=== PATIENT | male | born 1935 | race Caucasian/White ===

== ENCOUNTER 2017-10-10 10:42 | Inpatient (IN) | payer OTHER ==
[2017-10-10 12:54] LABS: BASOPHILS % (AUTO) 0.8 % (0.2-1.0); EOSINOPHILS # (AUTO) 0.1 x10^3/uL (0.0-0.2); EOSINOPHILS % (AUTO) 1.6 % (0.9-2.9); HEMATOCRIT 34.5 % (42.0-54.0); HEMOGLOBIN 12.1 g/dL (13.5-18.0); LYMPHOCYTES # (AUTO) 0.9 X10^3/uL (1.3-2.9); LYMPHOCYTES % (AUTO) 20.7 % (21.0-51.0); MEAN CORPUSCULAR HEMOGLOBIN 30.5 pg (27.0-34.0); MEAN CORPUSCULAR HGB CONC 35.1 g/dL (33.0-35.0); MEAN CORPUSCULAR VOLUME 86.9 fL (80.0-100.0); MEAN PLATELET VOLUME 7.1 fL (7.4-11.0); MONOCYTES # (AUTO) 0.2 x10^3/uL (0.3-0.8); MONOCYTES % (AUTO) 5.7 % (0.0-13.0); NEUTROPHILS % (AUTO) 71.2 % (42.0-75.0); PLATELET COUNT 266 X10^3/uL (150.0-450.0); RED BLOOD COUNT 3.97 X10^6/uL (4.7-6.0); WHITE BLOOD COUNT 4.3 X10^3/uL (3.6-10.0)
[2017-10-10 13:04] LABS: ALANINE AMINOTRANSFERASE 17 Units/L (12-78); ALKALINE PHOSPHATASE 70 Units/L (46-116); ASPARTATE AMINO TRANSFERASE 34 Units/L (15-37); BLOOD UREA NITROGEN 23 mg/dL (7-18); CALCIUM 8.8 mg/dL (8.5-10.1); CARBON DIOXIDE 30.1 mmol/L (21-32); CHLORIDE 99 mmol/L (98-107); COR CA(FOR HYPOALB) 9.6 mg/dL (8.5-10.1); COR NA(FOR HYPERGLY) 139 mmol/L (136-145); CREATININE 0.89 mg/dL (0.70-1.30); SODIUM 137 mmol/L (136-145); TOTAL PROTEIN 7.6 g/dL (6.4-8.2); eGFR BLACK RACES > 60 (>60); eGFR NON BLACK RACES > 60 (>60)
[2017-10-10 13:12] LABS: B-TYPE NATRIURETIC PEPTIDE 48.7 pg/mL (0-79)
--- NOTE | 2017-10-10 14:25 | RAD ---
HISTORY: Preoperative evaluation for hip fracture repair Study: Single view chest Comparison:None Findings: Single portable view is submitted. No infiltrate, effusion or pneumothorax identified. The cardiac an d mediastinal contours are within normal limits. The soft tissues are unremarkable. IMPRESSION: 1. No acute cardiopulmonary abnormality. Reported By:
[2017-10-10] MEDS: NS 1000 ML 1,000 ML IV SCH (14:41)
[2017-10-10] MEDS: CHECK PATCH XX SCH ×2 (15:48→21:57)
[2017-10-10] MEDS ORDERED: CHECK PATCH XX SCH (16:00)
[2017-10-10] MEDS ORDERED: BUTT CREAM (COMPOUND) ONE (17:15)
[2017-10-11] MEDS: NS 1000 ML 1,000 ML IV SCH (01:38)
[2017-10-11 02:39] LABS: BILIRUBIN,URINE NEGATIVE (NEGATIVE); BLOOD/HEMOGLOBIN,URINE 5+ (NEGATIVE); GLUCOSE, URINE NEGATIVE (NEGATIVE); KETONES,URINE 1+ (NEGATIVE); LEUKOCYTE ESTERASE ,URINE 1+ (NEGATIVE); NITRITES,URINE NEGATIVE (NEGATIVE); PROTEIN,URINE 2+ (NEGATIVE); UROBILINOGEN,URINE 3+ (NORMAL)
[2017-10-11 02:49] LABS: APPEARANCE,URINE CLOUDY (CLEAR); COLOR,URINE AMBER (YELLOW); RBC,URINE TNTC /HPF (NONE SEEN)
[2017-10-11 02:50] LABS: BACTERIA,URINE NEGATIVE /HPF (NEGATIVE); SQUAMOUS EPITHELIAL CELL,UR FEW /HPF (NEGATIVE)
[2017-10-11 05:29] LABS: ALBUMIN 2.8 g/dL (3.4-5.0); ALKALINE PHOSPHATASE 65 Units/L (46-116); ASPARTATE AMINO TRANSFERASE 23 Units/L (15-37); BLOOD UREA NITROGEN 17 mg/dL (7-18); CALCIUM 8.4 mg/dL (8.5-10.1); CARBON DIOXIDE 30.9 mmol/L (21-32); CHLORIDE 101 mmol/L (98-107); COR CA(FOR HYPOALB) 9.4 mg/dL (8.5-10.1); COR NA(FOR HYPERGLY) 138 mmol/L (136-145); CREATININE 0.77 mg/dL (0.70-1.30); SODIUM 137 mmol/L (136-145); TOTAL PROTEIN 7.1 g/dL (6.4-8.2); eGFR BLACK RACES > 60 (>60); eGFR NON BLACK RACES > 60 (>60)
[2017-10-11 05:31] LABS: BASOPHILS % (AUTO) 0.9 % (0.2-1.0); EOSINOPHILS # (AUTO) 0.2 x10^3/uL (0.0-0.2); EOSINOPHILS % (AUTO) 3.6 % (0.9-2.9); HEMATOCRIT 33.3 % (42.0-54.0); HEMOGLOBIN 11.4 g/dL (13.5-18.0); LYMPHOCYTES # (AUTO) 1.4 X10^3/uL (1.3-2.9); MEAN CORPUSCULAR HEMOGLOBIN 30.2 pg (27.0-34.0); MEAN CORPUSCULAR HGB CONC 34.4 g/dL (33.0-35.0); MEAN PLATELET VOLUME 7.7 fL (7.4-11.0); MONOCYTES # (AUTO) 0.4 x10^3/uL (0.3-0.8); MONOCYTES % (AUTO) 8.4 % (0.0-13.0); NEUTROPHILS # (AUTO) 2.9 x10^3/uL (2.2-4.8); NEUTROPHILS % (AUTO) 59.1 % (42.0-75.0); PLATELET COUNT 258 X10^3/uL (150.0-450.0); RED BLOOD COUNT 3.78 X10^6/uL (4.7-6.0); RED CELL DISTRIBUTION WIDTH 12.8 % (11.6-16.5); WHITE BLOOD COUNT 4.9 X10^3/uL (3.6-10.0)
[2017-10-11 05:42] LABS: ALANINE AMINOTRANSFERASE 25 Units/L (12-78)
[2017-10-11] MEDS: CHECK PATCH XX SCH ×2 (10:20→21:00)
[2017-10-11 10:33] VITALS: BMI 17.3
[2017-10-11] MEDS ORDERED: CHRONULAC PO PRN (10:55)
--- NOTE | 2017-10-11 10:55 | DR.H&P ---
H&P - History & Physical for Day of: H&P Date: 10/11/17 - Chief Complaint Chief Complaint: LEFT HIP FRACTURE, PAIN - Allergies Allergies/Adverse Reactions: Allergies Allergy/AdvReac Type Severity Reaction Status Date / Time No Known Drug Allergies Allergy Verified 10/10/17 12:25 - History of Present Illness History of Present Illness: IS A 81 YEAR OLD PATIENT OF . HE IS A PERMANENT RESIDENT OF [facility] IN [place], [place]. PATIENT FELL ON October AND NOW HAS A FRACTURED HIP. PATIENT IS NOTED WITH MODERATE PAIN TO THE LEFT HIP AREA. SPOUSE REPORTS THAT PATIENT WAS AMBULATORY WITHOUT DIFFICULTY PRIOR TO FALL. PATIENT WAS SEEN IN , ORTHOPEDIC SURGEONS OFFICE TODAY. THEY PLANNED FOR SURGICAL REPAIR TOMORROW. PATIENT WAS A DIRECT ADMISSION TODAY FOR PAIN MANAGEMENT AND SURGICAL CLEARANCE. ON ADMISSION, LABS WERE OBTAINED. ABNORMAL LAB VALUES INCLUDE THE FOLLOWING: RBC 3.97, HGB 12.1, HCT 34.5, BUN 23, GLUCOSE 183, ALBUMIN 3.0, GLOBULIN 4.6. URINALYSIS REVEALED WBC 3-5, RBC TNTC, LEUKOCYTES 1+ , BACTERIA NEGATIVE. A CHEST XRAY WAS OBTAINED AND IS CLEAR. ECHO REPORTED AN EJECTION FRACTION OF 84%. EKG REVEALS NORMAL SINUS RHYTHM WITH A NORMAL RATE. PATIENT IS MEDICALLY STABLE AND CLEAR FOR SURGICAL INTERVENTION. PLANS FOR SURGERY TOMORROW MORNING. WE WILL CONTINUE WITH PAIN MANAGEMENT AND FOLLOW UP WITH AM LABS. - Past Surgical History Surgical History: TURP - Social History Does patient currently use any type of tobacco product: No Have you used tobacco products in the last 12 months: No Type of Tobacco Use: None Does any household member use tobacco: No Alcohol Use: None Drug Use: None - Medications Home Medications: Acetaminophen [TYLENOL 325 MG TAB *] 2 tab PO Q6H PRN 10/10/17 [History Confirmed 10/10/17] Aspirin EC [ASPIRIN EC 81 MG *] 1 tab PO DAILY 10/10/17 [History Confirmed 10/10] Carbidopa/Levodopa [Rytary ER 61.25 mg-245 mg Cap] 1 cap PO QID 10/10/17 [ History Confirmed 10/10/17] Cholecalciferol [Vitamin D3] 1 tab PO BID 10/10/17 [History Confirmed 10/10/17] Divalproex Sodium [Depakote DR] 250 mg PO DAILY 10/10/17 [History Confirmed 03/20] Docusate Sodium [Colace] 1 cap PO DAILY 10/10/17 [History Confirmed 10/10/17] Fentanyl 25 Mcg/Hr [DURAGESIC PATCH 25 mcg/hr *] 1 patch TOP Q72H 10/10/17 [ History Confirmed 10/10/17] Gabapentin [Neurontin] 1 tab PO Q8H 10/10/17 [History Confirmed 10/10/17] Ibuprofen [MOTRIN TAB 600 MG *] 1 tab PO TID PRN 10/10/17 [History Confirmed 03/20] Lactulose 30 ml PO BID PRN 10/10/17 [History Confirmed 10/10/17] Lubiprostone [Amitiza] 1 cap PO BID 10/10/17 [History Confirmed 10/10/17] Mirtazapine 1 tab PO HS 10/10/17 [History Confirmed 10/10/17] Multivitamin [Multi-Vitamin Daily] 1 tab PO DAILY 10/10/17 [History Confirmed ] Omeprazole [PRILOSEC 20 MG *] 1 cap PO DAILY 10/10/17 [History Confirmed ] Oxycodone HCl/Acetaminophen [Oxycodone-Acetaminophen 10-325] 1 tab PO Q4H PRN [History Confirmed 10/10/17] Pimavanserin Tartrate [Nuplazid] 2 tab PO DAILY 10/10/17 [History Confirmed 03/20] Rivastigmine [EXELON PATCH 4.6 MG/24 HR *] 1 patch TOP Q24H 10/10/17 [History Confirmed 10/10/17] Trazodone HCl [TRAZODONE 50 MG (DESYREL) *] 1 tab PO DAILY 10/10/17 [History Confirmed 10/10/17] - Review of Systems Constitutional: Weakness Eyes: No Symptoms Reported ENT: No Symptoms Reported Respiratory: No Symptoms Reported Cardiovascular: No Symptoms Reported Gastrointestinal: No Symptoms Reported Genitourinary: No Symptoms Reported Musculoskeletal: See HPI, Other (LEFT HIP PAIN ) Skin: No Symptoms Reported Neurological: Weakness - Physical Exam Vital Signs: Temperature 97.6 F Pulse Rate [Left Brachial] 77 Pulse Rate [Right Brachial] 92 Respiratory Rate 18 Blood Pressure [Left Arm] 141/70 Blood Pressure [Right Arm] 124/76 O2 Sat by Pulse Oximetry 94 Oriented: Normal Eyes: Normal Ear: Normal Nose: Normal Throat: Normal Respiratory: Clear Throughout Cardiovascular: Normal : Normal Auscultation: Bowel Sounds: Normal Palpation: Normal Tenderness: Normal Skin: Normal Musculoskeletal: Left, Hip, Tender, Instability Psychiatric: Normal Mood Description: Calm Affect: Normal Speech Pattern: Clear - Assessment/Plan (1) Hip fracture Qualifiers: Encounter type: initial encounter Fracture type: closed Laterality: left Qualified Code(s): S72.002A - Fracture of unspecified part of neck of left femur, initial encounter for closed fracture Status: Acute Plan: SURGICAL REPAIR, PAIN MANAGEMENT
[2017-10-11] MEDS ORDERED: LR 1000 ML IV 1,000 ML IV ONE (12:04)
[2017-10-11] MEDS ORDERED: ANCEF 1 GM IV PREMIX* 1 GM/50 ML BAG IV ONE (12:09)
[2017-10-11] MEDS ORDERED: NS IRRIGATION 1000 ML 1,000 ML with BACITRACIN VIAL 50,000 UNIT IR ONE ×2 (12:49)
[2017-10-11] MEDS ORDERED: KETALAR ONE (12:50)
[2017-10-11] MEDS: FENTANYL INJ 100 mcg ONE (13:00)
[2017-10-11] MEDS: LEVODOPA PO SCH ×3 (13:56→23:54)
[2017-10-11] MEDS: CARBIDOPA PO SCH ×3 (13:56→23:54)
[2017-10-11] MEDS: BACTROBAN OINT ONE ×2 (14:28→14:38)
[2017-10-11] MEDS ORDERED: DILAUDID INJ IVP PRN (14:49)
[2017-10-11] MEDS ORDERED: REGLAN INJ 10 MG VIAL IVP PRN (14:49)
[2017-10-11] MEDS ORDERED: BENADRYL INJ 50 MG VIAL IVP PRN (14:49)
[2017-10-11] MEDS ORDERED: PHENERGAN INJ 25 MG IVP PRN (14:49)
[2017-10-11] MEDS ORDERED: ZOFRAN INJ 4 MG VIAL IVP PRN (14:49)
[2017-10-11] MEDS ORDERED: VERSED ONE (15:39)
[2017-10-11] MEDS ORDERED: DIPRIVAN VIAL ONE (15:39)
[2017-10-11] MEDS: EXELON PATCH 4.6 MG/24 HR TD SCH (15:48)
[2017-10-11] MEDS: PERCOCET TAB 5/325 MG PO PRN ×2 (15:49→20:00)
[2017-10-11] MEDS: ANCEF 1 GM IV PREMIX* 1 GM/50 ML BAG IV SCH ×2 (15:49→21:00)
[2017-10-11] MEDS ORDERED: PATIENT'S HOME MEDICATION (Mirtazapine [Mirtazapine] 1 TAB) PO SCH (21:00)
[2017-10-11] MEDS: PIMAVANSERIN TARTRATE PO SCH (21:00)
[2017-10-11] MEDS ORDERED: DIVALPROEX SODIUM 250 MG PO SCH (21:00)
[2017-10-11] MEDS: LUBIPROSTONE PO SCH (21:00)
--- NOTE | 2017-10-11 21:10 | PCM.PROG ---
Progress Note - Progress Note for Day of Date: 10/11/17 - Subjective Subjective: WAS ADMITTED FOR A LEFT HIP FRACTURE. PLANS TO TAKE PATIENT TO THE OR FOR SURGICAL REPAIR TODAY. HE IS ALERT AND ORIENTED, LYING IN BED ON MORNING ROUNDS. HE CONTINUES WITH PAIN TO THE LEFT HIP. HIS VITALS THIS MORNING ARE 99.3-71-18-99%-147/70. HE IS HEMODYNAMICALLY STABLE TODAY. TODAY, WE WILL CONTINUE TO MANAGE PAIN AND MONITOR PATIENT WHEN HE RETURNS FROM SURGERY. WE WILL FOLLOW UP WITH AM LABS AND CONTINUE TO MONITOR PATIENT. - Past Medical Family Social History Past Med/Fam/Surg Hx: No changes since H&P Allergies: Allergies No Known Drug Allergies Allergy (Verified 10/10/17 12:25) - Review of Systems ROS: No change since H&P - Vital Signs and I&O's Vital Signs: Temperature 97.6 F Pulse Rate [Left Brachial] 78 Pulse Rate [Right Brachial] 92 Pulse Rate 70 Respiratory Rate 18 Blood Pressure [Left Arm] 182/80 Blood Pressure [Right Arm] 124/76 Blood Pressure 178/84 O2 Sat by Pulse Oximetry 98 Intake and Output: Intake & Output 10/09/17 10/10/17 10/11/17 10/12/17 11:59 11:59 11:59 11:59 Intake Total 660 760 Output Total 100 Balance 560 760 - Physical Exam Oriented: Normal Eyes: Normal Ear: Normal Nose: Normal Throat: Normal Respiratory: Normal Cardiovascular: Normal : Normal Auscultation: Bowel Sounds: Normal Palpation: Normal Tenderness: Normal Skin: Normal Musculoskeletal: Left, Hip, Tender, Instability Psychiatric: Normal Mood Description: Calm Affect: Normal Speech Pattern: Clear - Laboratory and Diagnostics Result Diagrams: 10/11/17 04:23 10/11/17 04:23 Labs: Laboratory WBC 4.9 X10^3/uL (3.6-10.0) 10/11/17 04:23 RBC 3.78 X10^6/uL (4.7-6.0) L 10/11/17 04:23 Hgb 11.4 g/dL (13.5-18.0) L 10/11/17 04:23 Hct 33.3 % (42.0-54.0) L 10/11/17 04:23 MCV 88.0 fL (80.0-100.0) 10/11/17 04:23 MCH 30.2 pg (27.0-34.0) 10/11/17 04:23 MCHC 34.4 g/dL (33.0-35.0) 10/11/17 04:23 RDW 12.8 % (11.6-16.5) 10/11/17 04:23 Plt Count 258 X10^3/uL (150.0-450.0) 10/11/17 04:23 MPV 7.7 fL (7.4-11.0) 10/11/17 04:23 Neut % (Auto) 59.1 % (42.0-75.0) 10/11/17 04:23 Lymph % (Auto) 28.0 % (21.0-51.0) 10/11/17 04:23 [place] % (Auto) 8.4 % (0.0-13.0) 10/11/17 04:23 Eos % (Auto) 3.6 % (0.9-2.9) H 10/11/17 04:23 Baso % (Auto) 0.9 % (0.2-1.0) 10/11/17 04:23 Neut # (Auto) 2.9 x10^3/uL (2.2-4.8) 10/11/17 04:23 Lymph # (Auto) 1.4 X10^3/uL (1.3-2.9) 10/11/17 04:23 [place] # (Auto) 0.4 x10^3/uL (0.3-0.8) 10/11/17 04:23 Eos # (Auto) 0.2 x10^3/uL (0.0-0.2) 10/11/17 04:23 Baso # (Auto) 0.0 X10^3/uL (0.0-0.1) 10/11/17 04:23 Absolute Nucleated RBC 0.0 /100WBC 10/11/17 04:23 Sodium 137 mmol/L (136-145) 10/11/17 04:23 Corrected Sodium 138 mmol/L (136-145) 10/11/17 04:23 Potassium 4.0 mmol/L (3.5-5.1) 10/11/17 04:23 Chloride 101 mmol/L (98-107) 10/11/17 04:23 Carbon Dioxide 30.9 mmol/L (21-32) 10/11/17 04:23 BUN 17 mg/dL (7-18) 10/11/17 04:23 Creatinine 0.77 mg/dL (0.70-1.30) 10/11/17 04:23 Est GFR (MDRD) Af Amer > 60 (>60) 10/11/17 04:23 Est GFR (MDRD) Non-Af > 60 (>60) 10/11/17 04:23 Glucose 122 mg/dL (65-99) H 10/11/17 04:23 Calcium 8.4 mg/dL (8.5-10.1) L 10/11/17 04:23 Corrected Calcium 9.4 mg/dL (8.5-10.1) 10/11/17 04:23 Total Bilirubin 0.50 mg/dL (0.2-1.0) 10/11/17 04:23 AST 23 Units/L (15-37) 10/11/17 04:23 ALT 25 Units/L (12-78) 10/11/17 04:23 Alkaline Phosphatase 65 Units/L (46-116) 10/11/17 04:23 B-Natriuretic Peptide 48.7 pg/mL (0-79) 10/10/17 12:42 Total Protein 7.1 g/dL (6.4-8.2) 10/11/17 04:23 Albumin 2.8 g/dL (3.4-5.0) L 10/11/17 04:23 Globulin 4.3 g/dL (2.5-4.5) 10/11/17 04:23 Albumin/Globulin Ratio 0.7 Ratio (1.1-2.1) L 10/11/17 04:23 Specimen Type Random urine 10/11/17 02:30 Urine Color Saniya (YELLOW) 10/11/17 02:30 Urine Appearance Cloudy (CLEAR) 10/11/17 02:30 Urine pH 7.0 (5.0 - 8.0) 10/11/17 02:30 Ur Specific [place] 1.015 (1.000-1.030) 10/11/17 02:30 Urine Protein 2+ (NEGATIVE) 10/11/17 02:30 Urine Glucose (UA) Negative (NEGATIVE) 10/11/17 02:30 Urine Ketones 1+ (NEGATIVE) 10/11/17 02:30 Urine Occult Blood 5+ (NEGATIVE) 10/11/17 02:30 Urine Nitrite Negative (NEGATIVE) 10/11/17 02:30 Urine Bilirubin Negative (NEGATIVE) 10/11/17 02:30 Urine Urobilinogen 3+ (NORMAL) 10/11/17 02:30 Ur Leukocyte Esterase 1+ (NEGATIVE) 10/11/17 02:30 Urine RBC Tntc /HPF (NONE SEEN) 10/11/17 02:30 Urine WBC 3-5 /HPF (NONE SEEN) 10/11/17 02:30 Ur Squamous Epith Cells Few /HPF (NEGATIVE) 10/11/17 02:30 Urine Bacteria Negative /HPF (NEGATIVE) 10/11/17 02:30 Ur Culture Indicated? No/not indicated 10/11/17 02:30 Blood Type O POSITIVE 10/10/17 16:30 Antibody Screen Negative 10/10/17 16:30 Crossmatch See Detail 10/10/17 16:30 - Plan (1) Hip fracture Status: Acute Qualifiers: Encounter type: initial encounter Fracture type: closed Laterality: left Qualified Code(s): S72.002A - Fracture of unspecified part of neck of left femur, initial encounter for closed fracture Plan: SURGICAL REPAIR, PAIN MANAGEMENT
[2017-10-11] MEDS: DESYREL PO SCH (21:14)
[2017-10-11] MEDS: PriLOSEC PO SCH (21:14)
[2017-10-11] MEDS: NORVASC TAB 5 MG PO SCH (21:14)
[2017-10-11] MEDS: COLACE CAP 100 MG PO SCH (21:14)
[2017-10-11] MEDS: REMERON PO SCH (21:14)
[2017-10-11] MEDS: VITAMIN D3 PO SCH (21:14)
[2017-10-12] MEDS: NS 1000 ML 1,000 ML IV SCH ×4 (03:57→17:09)
[2017-10-12] MEDS: ANCEF 1 GM IV PREMIX* 1 GM/50 ML BAG IV SCH ×2 (03:58→09:47)
[2017-10-12 05:24] LABS: BASOPHILS % (AUTO) 0.7 % (0.2-1.0); EOSINOPHILS # (AUTO) 0.1 x10^3/uL (0.0-0.2); EOSINOPHILS % (AUTO) 2.2 % (0.9-2.9); HEMATOCRIT 28.1 % (42.0-54.0); HEMOGLOBIN 9.8 g/dL (13.5-18.0); LYMPHOCYTES # (AUTO) 1.1 X10^3/uL (1.3-2.9); LYMPHOCYTES % (AUTO) 18.7 % (21.0-51.0); MEAN CORPUSCULAR HEMOGLOBIN 30.5 pg (27.0-34.0); MEAN CORPUSCULAR HGB CONC 34.8 g/dL (33.0-35.0); MEAN CORPUSCULAR VOLUME 87.7 fL (80.0-100.0); MEAN PLATELET VOLUME 7.5 fL (7.4-11.0); MONOCYTES # (AUTO) 0.4 x10^3/uL (0.3-0.8); MONOCYTES % (AUTO) 7.6 % (0.0-13.0); NEUTROPHILS # (AUTO) 4.1 x10^3/uL (2.2-4.8); NEUTROPHILS % (AUTO) 70.8 % (42.0-75.0); PLATELET COUNT 245 X10^3/uL (150.0-450.0); RED CELL DISTRIBUTION WIDTH 12.9 % (11.6-16.5); WHITE BLOOD COUNT 5.8 X10^3/uL (3.6-10.0)
[2017-10-12 05:37] LABS: ALANINE AMINOTRANSFERASE 20 Units/L (12-78); ALBUMIN 2.6 g/dL (3.4-5.0); ALKALINE PHOSPHATASE 60 Units/L (46-116); ASPARTATE AMINO TRANSFERASE 18 Units/L (15-37); BLOOD UREA NITROGEN 15 mg/dL (7-18); CARBON DIOXIDE 26.7 mmol/L (21-32); CHLORIDE 101 mmol/L (98-107); COR CA(FOR HYPOALB) 9.1 mg/dL (8.5-10.1); COR NA(FOR HYPERGLY) 136 mmol/L (136-145); CREATININE 0.67 mg/dL (0.70-1.30); SODIUM 135 mmol/L (136-145); TOTAL PROTEIN 6.3 g/dL (6.4-8.2); eGFR BLACK RACES > 60 (>60); eGFR NON BLACK RACES > 60 (>60)
[2017-10-12] MEDS: FENTANYL INJ 100 mcg ONE (07:29)
[2017-10-12] MEDS: DEPAKOTE D.R. TAB PO SCH (09:47)
[2017-10-12] MEDS: CHECK PATCH XX SCH ×2 (09:47→21:00)
[2017-10-12] MEDS: COLACE CAP 100 MG PO SCH (09:47)
[2017-10-12] MEDS: NORVASC TAB 5 MG PO SCH (09:47)
[2017-10-12] MEDS: PriLOSEC PO SCH (09:48)
[2017-10-12] MEDS: LEVODOPA PO SCH (09:48)
[2017-10-12] MEDS: CARBIDOPA PO SCH (09:48)
[2017-10-12] MEDS: TAB-A-VITE PO SCH (09:48)
[2017-10-12] MEDS: LUBIPROSTONE PO SCH (09:48)
[2017-10-12] MEDS: VITAMIN D3 PO SCH ×2 (09:48→21:02)
[2017-10-12] MEDS: PERCOCET TAB 5/325 MG PO PRN (09:49)
[2017-10-12] MEDS: PIMAVANSERIN TARTRATE PO SCH (09:49)
--- NOTE | 2017-10-12 10:23 | RAD ---
Examination: Portable AP chest History: Decreased breath sounds, SOB Comparison 10/10/2017 Findings: Continued normal heart size with no acute pulmonary, pleural or hilar lesion demonstrated. Impression: No change; no acute findings. Reported By:
[2017-10-12] MEDS: EXELON PATCH 4.6 MG/24 HR TD SCH (10:38)
[2017-10-12] MEDS: LOVENOX INJ 30 MG SYR SC SCH (11:25)
[2017-10-12] MEDS: LINZESS PO SCH (11:25)
[2017-10-12] MEDS: SINEMET CR 50/200 MG PO SCH ×3 (12:19→21:02)
[2017-10-12] MEDS: FLONASE NASAL SPRAY ENOSTRIL SCH (17:10)
[2017-10-12] MEDS: REMERON PO SCH (21:02)
[2017-10-13] MEDS: DESYREL PO SCH ×2 (01:41→20:33)
[2017-10-13] MEDS: NS 1000 ML 1,000 ML IV SCH ×2 (04:33→18:44)
[2017-10-13 05:16] LABS: BASOPHILS # (AUTO) 0.1 X10^3/uL (0.0-0.1); BASOPHILS % (AUTO) 0.7 % (0.2-1.0); EOSINOPHILS # (AUTO) 0.2 x10^3/uL (0.0-0.2); EOSINOPHILS % (AUTO) 3.6 % (0.9-2.9); HEMATOCRIT 30.4 % (42.0-54.0); HEMOGLOBIN 10.6 g/dL (13.5-18.0); LYMPHOCYTES # (AUTO) 1.4 X10^3/uL (1.3-2.9); LYMPHOCYTES % (AUTO) 19.9 % (21.0-51.0); MEAN CORPUSCULAR HEMOGLOBIN 30.7 pg (27.0-34.0); MEAN CORPUSCULAR HGB CONC 34.8 g/dL (33.0-35.0); MEAN CORPUSCULAR VOLUME 88.4 fL (80.0-100.0); MEAN PLATELET VOLUME 7.4 fL (7.4-11.0); MONOCYTES # (AUTO) 0.4 x10^3/uL (0.3-0.8); MONOCYTES % (AUTO) 5.4 % (0.0-13.0); NEUTROPHILS # (AUTO) 4.8 x10^3/uL (2.2-4.8); NEUTROPHILS % (AUTO) 70.4 % (42.0-75.0); PLATELET COUNT 249 X10^3/uL (150.0-450.0); RED BLOOD COUNT 3.43 X10^6/uL (4.7-6.0); RED CELL DISTRIBUTION WIDTH 13.2 % (11.6-16.5); WHITE BLOOD COUNT 6.8 X10^3/uL (3.6-10.0)
[2017-10-13 05:26] LABS: ALANINE AMINOTRANSFERASE 11 Units/L (12-78); ALBUMIN 2.6 g/dL (3.4-5.0); ALKALINE PHOSPHATASE 63 Units/L (46-116); ASPARTATE AMINO TRANSFERASE 21 Units/L (15-37); BLOOD UREA NITROGEN 19 mg/dL (7-18); CALCIUM 7.9 mg/dL (8.5-10.1); CARBON DIOXIDE 32.3 mmol/L (21-32); CHLORIDE 101 mmol/L (98-107); COR NA(FOR HYPERGLY) 137 mmol/L (136-145); CREATININE 0.86 mg/dL (0.70-1.30); SODIUM 136 mmol/L (136-145); TOTAL PROTEIN 6.8 g/dL (6.4-8.2); eGFR BLACK RACES > 60 (>60); eGFR NON BLACK RACES > 60 (>60)
[2017-10-13] MEDS: PERCOCET TAB 5/325 MG PO PRN ×2 (09:46→18:46)
[2017-10-13] MEDS: DEPAKOTE D.R. TAB PO SCH (09:46)
[2017-10-13] MEDS: COLACE CAP 100 MG PO SCH (09:47)
[2017-10-13] MEDS: PriLOSEC PO SCH (09:47)
[2017-10-13] MEDS: VITAMIN D3 PO SCH ×2 (09:47→20:33)
[2017-10-13] MEDS: SINEMET CR 50/200 MG PO SCH ×4 (09:47→20:32)
[2017-10-13] MEDS: TAB-A-VITE PO SCH (09:47)
[2017-10-13] MEDS: LINZESS PO SCH (09:47)
[2017-10-13] MEDS: NORVASC TAB 5 MG PO SCH (09:48)
[2017-10-13] MEDS: LOVENOX INJ 30 MG SYR SC SCH (09:48)
[2017-10-13] MEDS: PIMAVANSERIN TARTRATE PO SCH (09:49)
[2017-10-13] MEDS: CHECK PATCH XX SCH ×2 (09:49→20:38)
[2017-10-13] MEDS: EXELON PATCH 4.6 MG/24 HR TD SCH (09:59)
[2017-10-13] MEDS: FLONASE NASAL SPRAY ENOSTRIL SCH (10:09)
--- NOTE | 2017-10-13 15:53 | RAD ---
Examination: Portable AP chest History: Cough Comparison 10/12/2017 Findings: Continued normal cardiac size with clear lungs and pleural spaces. Impression: No change; no acute findings. Reported By:
[2017-10-13] MEDS ORDERED: MORPHINE SULFATE INJ 2 MG INJ IVP PRN (18:30)
[2017-10-13] MEDS: REMERON PO SCH (20:33)
[2017-10-14 05:18] LABS: BASOPHILS % (AUTO) 0.7 % (0.2-1.0); EOSINOPHILS # (AUTO) 0.3 x10^3/uL (0.0-0.2); EOSINOPHILS % (AUTO) 5.9 % (0.9-2.9); HEMATOCRIT 29.5 % (42.0-54.0); HEMOGLOBIN 10.2 g/dL (13.5-18.0); LYMPHOCYTES # (AUTO) 1.4 X10^3/uL (1.3-2.9); LYMPHOCYTES % (AUTO) 24.2 % (21.0-51.0); MEAN CORPUSCULAR HEMOGLOBIN 30.5 pg (27.0-34.0); MEAN CORPUSCULAR HGB CONC 34.8 g/dL (33.0-35.0); MEAN CORPUSCULAR VOLUME 87.7 fL (80.0-100.0); MEAN PLATELET VOLUME 7.5 fL (7.4-11.0); MONOCYTES # (AUTO) 0.3 x10^3/uL (0.3-0.8); MONOCYTES % (AUTO) 5.4 % (0.0-13.0); NEUTROPHILS # (AUTO) 3.7 x10^3/uL (2.2-4.8); NEUTROPHILS % (AUTO) 63.8 % (42.0-75.0); PLATELET COUNT 246 X10^3/uL (150.0-450.0); RED BLOOD COUNT 3.36 X10^6/uL (4.7-6.0); RED CELL DISTRIBUTION WIDTH 12.9 % (11.6-16.5); WHITE BLOOD COUNT 5.8 X10^3/uL (3.6-10.0)
[2017-10-14 05:30] LABS: ALANINE AMINOTRANSFERASE 8 Units/L (12-78); ALBUMIN 2.3 g/dL (3.4-5.0); ALKALINE PHOSPHATASE 58 Units/L (46-116); ASPARTATE AMINO TRANSFERASE 18 Units/L (15-37); BLOOD UREA NITROGEN 15 mg/dL (7-18); CALCIUM 7.6 mg/dL (8.5-10.1); CARBON DIOXIDE 30.9 mmol/L (21-32); CHLORIDE 102 mmol/L (98-107); CREATININE 0.64 mg/dL (0.70-1.30); SODIUM 138 mmol/L (136-145); TOTAL PROTEIN 6.1 g/dL (6.4-8.2); eGFR BLACK RACES > 60 (>60); eGFR NON BLACK RACES > 60 (>60)
[2017-10-14] MEDS: NS 1000 ML 1,000 ML IV SCH (09:41)
[2017-10-14] MEDS: VITAMIN D3 PO SCH (09:42)
[2017-10-14] MEDS: CHECK PATCH XX SCH (09:42)
[2017-10-14] MEDS: PERCOCET TAB 5/325 MG PO PRN (09:42)
[2017-10-14] MEDS: LINZESS PO SCH (09:43)
[2017-10-14] MEDS: COLACE CAP 100 MG PO SCH (09:43)
[2017-10-14] MEDS: NORVASC TAB 5 MG PO SCH (09:43)
[2017-10-14] MEDS: SINEMET CR 50/200 MG PO SCH (09:43)
[2017-10-14] MEDS: PIMAVANSERIN TARTRATE PO SCH (09:43)
[2017-10-14] MEDS: PriLOSEC PO SCH (09:43)
[2017-10-14] MEDS: TAB-A-VITE PO SCH (09:43)
[2017-10-14] MEDS: DEPAKOTE D.R. TAB PO SCH (09:43)
[2017-10-14] MEDS: LOVENOX INJ 30 MG SYR SC SCH (09:44)
[2017-10-14] MEDS: FLONASE NASAL SPRAY ENOSTRIL SCH (09:45)
[2017-10-14] MEDS: EXELON PATCH 4.6 MG/24 HR TD SCH (10:07)
[2017-10-14] MEDS ORDERED: DULCOLAX SUPPOSITORY 10 MG RECTAL ONE (11:08)
--- NOTE | 2017-10-14 14:12 | OR.GENERIC ---
Post-Op Note Generic - Post-Op Note Operative Report: PREOPERATIVE DIAGNOSIS: left inter- trochanteric femur fracture, osteoporotic, pathological fracture. POSTOPERATIVE DIAGNOSIS: left inter- trochanteric femur fracture, osteoporotic , pathological fracture. OPERATION: LEFT intertrochanteric fracture treated with Intramedullary david in the left hip Implants used: Gamma 3 system, [place] 170 X 10 mm short nail, 125, 105 mm hip screw 5.0 X 40 mm distal locking bolt Date of surgery- 10/11/2017 COMPLICATIONS: None. ESTIMATED BLOOD LOSS: 50 mL. ANESTHESIA:Spinal INDICATIONS: Patient is a 81-year-old white male presented to the office for evaluation of the LEFT hip. He was in the office with his . patient is currently in a group home resident at [facility]. On 10/04/2017 patient fell and fractured his LEFT hip. Patient has had just had a bath and the nurse was assisting him and she returned back he fell down and around his LEFT hip. Fractured LEFT hip. He was seen in the [facility] emergency room. Which showed a LEFT hip fracture. Patient was sent back to the group home and has been restricted in the bed since the fall. His past history is significant for dementia, parkinsonism.He has been in the group home since JUL 2016. His mobility status is not clear but his son reports that he has been walking untill the last fall. Examination reveals a 81-year-old white male, well- developed well-nourished. Afebrile. Patient was lying on the LEFT side and crouched up due to pain. Patient was in a position. Patient seemed to be in distress due to the pain in the LEFT hip. Patient seems to be alert but was not oriented to time place and person. Patient was unable to stand up and walk due to pain. Examination of the LEFT hip. Positive for diffuse swelling in the LEFT hip. Skin over the LEFT hip negative for any scars. bruising and induration noted in the LEFT hip region. Tenderness noted in the anterior joint line, lateral, trochanter, The posterior joint line. 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 more severe in the right side.Range of motion could not be tested because of severe pain in the LEFT hip. Log roll test is very painful. No abnormal mobility or deformities noted. Motor examination and the neurological examination could not be completed because of the patient's inability to follow the command. Distal pulsations well felt. Soft and nontender Calf.Patient is a 81-year-old white male, resident and had a group home. History of fall and fractured LEFT hip. has multiple medical issues. Has dementia and parkinsonism. X-rays show an incomplete intertrochanteric fracture. The radiology read says it is a greater trochanteric fracture. I disagree with a report as the fracture line and the morphology suggest more towards a incomplete intertrochanteric fracture. I had a detailed discussion with the about the treatment options. Bedrest has a significant risk in his case as he will be at increased risk of bedsores, deep vein thrombosis, PE, strokes and cardiac issues. Weightbearing as tolerated was also discussed with her and the risks of fracture propagation leading to a complete intertrochanteric fracture was also discussed. Surgical intervention in the form of gamma nail was also discussed with them. The risks and benefits involved in all these 3 were discussed with her. She expressed the opinion to proceed with the surgical intervention. I talked to Dr. ORDAZ and he agreed to have her medically admitted under his care at [facility]. he was posted for LEFT hip gamma nail. patient got a medical clearance and also anesthesia clearance for surgery.Risks and benefits were also discussed. Risks include bleeding, infection, damage to blood vessels, damage to nerves, risk of further surgery, chronic pain, restricted range of motion, risk of continued discomfort, risk of malunion, risk of nonunion, risk of need for further reconstructive procedures, risk of need for altered activities and altered gait , avascular necrosis, nonunion, malunion, penetration of the hip screw into the hip joint, implant failure, need of conversion to total hip, risk of blood clots , pulmonary embolism, myocardial infarction, and risk of were discussed. The family understood these well and consented, and the and children signed the consent for the procedure as described. DESCRIPTION OF PROCEDURE: The patient was placed on the operating table and spinal anesthesia was achieved. The patient was then placed in fracture table and the RIGHT leg was placed in a well-leg gallardo. NO need for closed reduction as the fracture was incomplete. Checked in AP and lateral fluoroscopy control to get anatomical alignment. At this point, the left hip and left lower extremity was then prepped and draped in the usual sterile manner. An incision about 3 cm made 4 cm above the greater trochanter tip. Dissection taken through the TFL and G medius. A guidepin was placed over the appropriate starting point which is at the medial tip of greater trochanter. The guidepin was slowly advanced into the proximal canal across the fracture site and fluoroscopy confirmed intramedullary placement of the guidepin. The soft tissue protector was used throughout the procedure. Proximal conical reaming done with the entry reamer. The appropriate size nail was built on the back table and made sure that the targeting guides aligned with the holes in the nail. The nail was advanced over the guidewire and fully seated. guidewire was taken out. Using the trocar and sleeve the guidepin for lag screw was in inserted next. A guidewire was inserted and felt to be in proper position, in the posterior aspect of the femoral head, lateral, and the center position on AP. Reaming was done of the guide wire and a hip screw was inserted. Traction was removed and compression across the fracture site noted. Distal locking performed through the jig. We did a near anatomical alignment to the fracture site and all hardware was properly fixed. Proper size and fit was noted. Excellent bony approximation was noted. At this point, both wounds were thoroughly irrigated, hemostasis confirmed, and closure was then begun. The fascial layers were then reapproximated using #1 Vicryl in a figure-of- eight manner, the subcutaneous tissues were reapproximated in layers using #1 and 2-0 Vicryl sutures, and the skin was reapproximated with alix. The area was then infiltrated with a mixture of a 0.25% Marcaine with Epinephrine and 1% plain lidocaine. Sterile dressing was then applied. No complication was encountered throughout the procedure. The patient tolerated the procedure well. The patient was taken to the recovery room in stable condition. Postoperative x -rays were obtained with the knee in unremarkable reduction of the fracture and well aligned Gamma nail. I did discuss with the family after the surgery. Postop instructions pain management, weightbearing as tolerated without any precautions with physical therapy. Regular wound check. Follow-up is advised.
--- NOTE | 2017-10-14 14:19 | PCM.PROG ---
Progress Note - Progress Note for Day of Date: 10/14/17 - Subjective Subjective: patient is postoperative day 3. Patient is lying in the bed. Patient is asleep. Afebrile. Stable vitals. Patient not very oriented to parkinsonism and dementia. His by his bedside today. Pain seemed to be well controlled. Physical therapy has tried to get him out of the bed. 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 They are having hard time getting to stand without support. His dementia and parkinsonism makes it really tough for them to work with him. Surgical incision clean and dry. No signs of redness, induration or discharge noted. On further questioning the RIGHT she reports that he has had these contractures and stiffness in the knees for many month. Plan. We will continue with physical therapy, to get him to stand and walk. It was discussed clearly with the that it would be a huge uphill task to get him to walking if he has bilateral severe contractures of the lower limb, his mental status and inability to follow instructions. Also his inability to work with the physical therapist. Discharge instructions were discussed with the home health. Advised regular dressing change. LOVENOX for 20 days. KATHERIN hose for 6 weeks. Follow-up in 3 weeks in the office. Regular dressing changes every 3 days. Encouraged to get in touch with the office in case of concerns. - Past Medical Family Social History Past Med/Fam/Surg Hx: No changes since H&P Allergies: Allergies No Known Drug Allergies Allergy (Verified 10/10/17 12:25) - Review of Systems ROS: No change since H&P - Vital Signs and I&O's Vital Signs: Temperature 98.5 F Pulse Rate [Left Brachial] 75 Pulse Rate [Right Brachial] 92 Pulse Rate 70 Respiratory Rate 18 Blood Pressure [Left Arm] 140/61 Blood Pressure [Right Arm] 124/76 Blood Pressure 178/84 O2 Sat by Pulse Oximetry 99 Intake and Output: Intake & Output 10/12/17 10/13/17 10/14/17 10/15/17 11:59 11:59 11:59 11:59 Intake Total 1330 1060 1350 Output Total 75 Balance 1330 1060 1275 - Physical Exam Oriented: Normal Eyes: Normal Ear: Normal Nose: Normal Throat: Normal Respiratory: Normal Cardiovascular: Normal : Normal Auscultation: Bowel Sounds: Normal Tenderness: Normal Skin: Normal Musculoskeletal: Left, Hip, Tender, Instability Psychiatric: Normal Mood Description: Calm Affect: Normal Speech Pattern: Unclear, Inappropriate, Delayed - Laboratory and Diagnostics Result Diagrams: 10/14/17 04:10 10/14/17 04:10 Labs: Laboratory WBC 5.8 X10^3/uL (3.6-10.0) 10/14/17 04:10 RBC 3.36 X10^6/uL (4.7-6.0) L 10/14/17 04:10 Hgb 10.2 g/dL (13.5-18.0) L 10/14/17 04:10 Hct 29.5 % (42.0-54.0) L 10/14/17 04:10 MCV 87.7 fL (80.0-100.0) 10/14/17 04:10 MCH 30.5 pg (27.0-34.0) 10/14/17 04:10 MCHC 34.8 g/dL (33.0-35.0) 10/14/17 04:10 RDW 12.9 % (11.6-16.5) 10/14/17 04:10 Plt Count 246 X10^3/uL (150.0-450.0) 10/14/17 04:10 MPV 7.5 fL (7.4-11.0) 10/14/17 04:10 Neut % (Auto) 63.8 % (42.0-75.0) 10/14/17 04:10 Lymph % (Auto) 24.2 % (21.0-51.0) 10/14/17 04:10 [place] % (Auto) 5.4 % (0.0-13.0) 10/14/17 04:10 Eos % (Auto) 5.9 % (0.9-2.9) H 10/14/17 04:10 Baso % (Auto) 0.7 % (0.2-1.0) 10/14/17 04:10 Neut # (Auto) 3.7 x10^3/uL (2.2-4.8) 10/14/17 04:10 Lymph # (Auto) 1.4 X10^3/uL (1.3-2.9) 10/14/17 04:10 [place] # (Auto) 0.3 x10^3/uL (0.3-0.8) 10/14/17 04:10 Eos # (Auto) 0.3 x10^3/uL (0.0-0.2) H 10/14/17 04:10 Baso # (Auto) 0.0 X10^3/uL (0.0-0.1) 10/14/17 04:10 Absolute Nucleated RBC 0.1 /100WBC 10/14/17 04:10 Sodium 138 mmol/L (136-145) 10/14/17 04:10 Corrected Sodium TNP 10/14/17 04:10 Potassium 3.8 mmol/L (3.5-5.1) 10/14/17 04:10 Chloride 102 mmol/L (98-107) 10/14/17 04:10 Carbon Dioxide 30.9 mmol/L (21-32) 10/14/17 04:10 BUN 15 mg/dL (7-18) 10/14/17 04:10 Creatinine 0.64 mg/dL (0.70-1.30) L 10/14/17 04:10 Est GFR (MDRD) Af Amer > 60 (>60) 10/14/17 04:10 Est GFR (MDRD) Non-Af > 60 (>60) 10/14/17 04:10 Glucose 108 mg/dL (65-99) H 10/14/17 04:10 Calcium 7.6 mg/dL (8.5-10.1) L 10/14/17 04:10 Corrected Calcium 9.0 mg/dL (8.5-10.1) 10/14/17 04:10 Total Bilirubin 0.40 mg/dL (0.2-1.0) 10/14/17 04:10 AST 18 Units/L (15-37) 10/14/17 04:10 ALT 8 Units/L (12-78) L 10/14/17 04:10 Alkaline Phosphatase 58 Units/L (46-116) 10/14/17 04:10 B-Natriuretic Peptide 48.7 pg/mL (0-79) 10/10/17 12:42 Total Protein 6.1 g/dL (6.4-8.2) L 10/14/17 04:10 Albumin 2.3 g/dL (3.4-5.0) L 10/14/17 04:10 Globulin 3.8 g/dL (2.5-4.5) 10/14/17 04:10 Albumin/Globulin Ratio 0.6 Ratio (1.1-2.1) L 10/14/17 04:10 Specimen Type Random urine 10/11/17 02:30 Urine Color Saniya (YELLOW) 10/11/17 02:30 Urine Appearance Cloudy (CLEAR) 10/11/17 02:30 Urine pH 7.0 (5.0 - 8.0) 10/11/17 02:30 Ur Specific [place] 1.015 (1.000-1.030) 10/11/17 02:30 Urine Protein 2+ (NEGATIVE) 10/11/17 02:30 Urine Glucose (UA) Negative (NEGATIVE) 10/11/17 02:30 Urine Ketones 1+ (NEGATIVE) 10/11/17 02:30 Urine Occult Blood 5+ (NEGATIVE) 10/11/17 02:30 Urine Nitrite Negative (NEGATIVE) 10/11/17 02:30 Urine Bilirubin Negative (NEGATIVE) 10/11/17 02:30 Urine Urobilinogen 3+ (NORMAL) 10/11/17 02:30 Ur Leukocyte Esterase 1+ (NEGATIVE) 10/11/17 02:30 Urine RBC Tntc /HPF (NONE SEEN) 10/11/17 02:30 Urine WBC 3-5 /HPF (NONE SEEN) 10/11/17 02:30 Ur Squamous Epith Cells Few /HPF (NEGATIVE) 10/11/17 02:30 Urine Bacteria Negative /HPF (NEGATIVE) 10/11/17 02:30 Ur Culture Indicated? No/not indicated 10/11/17 02:30 Blood Type O POSITIVE 10/10/17 16:30 Antibody Screen Negative 10/10/17 16:30 Crossmatch See Detail 10/10/17 16:30 - Plan (1) Hip fracture Status: Acute Qualifiers: Encounter type: initial encounter Fracture type: closed Laterality: left Qualified Code(s): S72.002A - Fracture of unspecified part of neck of left femur, initial encounter for closed fracture Plan: patient's LEFT hip has been fixed. Patient is allowed weightbearing full without any restrictions. No posterior hip precautions. Patient has parkinsonism, dementia, bilateral hip and knee contractures, which make it really challenging for the physical therapy. Patient is unable to follow instructions and does not have any comprehension to work towards his full recovery with the help of physical therapy. These findings were discussed with her . She understands and verbalizes same.
[2017-10-14 14:46] VITALS: BP 139/54
[2017-10-14] MEDS ORDERED: DIPRIVAN VIAL ONE (15:09)
[2017-10-14] MEDS ORDERED: VERSED ONE (15:09)
== END 2017-10-14 14:00 | DRG 482 ==
LOC: MED/SURG 10:42 → UNDOADMIN 10:42 → MED/SURG 12:05
PROVIDERS: ADMIT Internal Medicine; ATTEND Internal Medicine
PROC: 0QS736Z Reposition Left Upper Femur with Intramedullary Internal Fixation Device, Percutaneous Approach (ICD-10-PCS; principal; 2017-10-11 12:30)
DX: S72.142A Displaced intertrochanteric fracture of left femur, initial encounter for closed fracture (principal); X58.XXXA Exposure to other specified factors, initial encounter; G89.29 Other chronic pain; R26.89 Other abnormalities of gait and mobility
CPT/HCPCS: 36415; 71045; 76000; 80053; 81001; 83880; 85025; 86850; 86900; 86901; 86922; 93005; 93306; 94762; 97535; 99100; 99231; A4222; J0690; J1650; J2250; J2270; J3010; J3490; J7120